=== PATIENT | female | born 1965 | race Caucasian/White ===

== ENCOUNTER 2022-03-26 21:26 | Emergency (ER) | payer OTHER ==
--- OUTSIDE RECORDS SUMMARY | 2022-03-26 21:37 | XMS REPORT | Continuity of Care Document ---
:1965 Author Organization [facility] t Address [address] [place] [address] Dr. Sosa [address] [place] [id number] Care Team Providers Name Role Phone Phani Attending Clinician Unavailable DR SAM Attending Clinician Unavailable YVETTE_Denice Attending Clinician Unavailable Yvette Attending Clinician [phone] DR SAM Admitting Clinician Unavailable BRIAN Admitting Clinician Unavailable Payers Payer Name Policy Type Policy Number Effective Date Expiration Date S ource [facility] [id number] [employer] [id number] (PPO) Problems This patient has no known problems. Allergies, Adverse Reactions, Alerts This patient has no known allergies or adverse reactions. Medications This patient has no known medications. Procedures This patient has no known procedures. Encounters Start End Encounter Admission Attending Care Care Encounter Source Date/Time Date/Time Type Type Clinicians Facility Department ID 2021-11-[address] [facility] [id number] Common 12:59:33 [facility] [id number] [facility] 2021-11-29 [facility] [id number] Common 12:47:34 [facility] [id number] [facility] 2019-02-17 Inpatient C SAM [facility] [id number] [facility] 08:44:00 [facility] 2022-03-01 2022-03-01 Outpatient YVETTE_C [facility] [id number] Angel 11:57:00 11:57:00 0428 [facility] 2022-03-01 2022-03-01 Outpatient Yvette [facility] [id number] 00:00:00 00:00:00 Jim [id number] 2021-12-12 2021-12-12 Outpatient SISSON_C [facility] [id number] Dixie 03:07:00 03:07:00 0208 [facility] 2021-12-12 2021-12-12 Outpatient Yvette [facility] [id number] 00:00:00 00:00:00 Jim [id number] 2021-11-10 2021-11-10 Outpatient SISSON_C [facility] [id number] Dixie 11:22:00 11:22:00 0107 [facility] 2021-11-07 2021-11-07 Outpatient SISSON_C [facility] [id number] [place]ie 02:56:00 02:56:00 0104 [facility] 2021-11-07 2021-11-07 Outpatient Yvette [facility] [id number] 00:00:00 00:00:00 Jim [id number] 2021-10-10 2021-10-10 Outpatient SISSON_C [facility] [id number] [place]ie 04:24:00 04:24:00 1207 [facility] 2021-10-10 2021-10-10 Outpatient Yvette [facility] [id number] 00:00:00 00:00:00 Jim [id number] 2021-09-15 2021-09-15 Outpatient SISSON_C [facility] [id number] [place]ie 02:38:00 02:38:00 1112 [facility] 2021-09-15 2021-09-15 Outpatient Yvette [facility] [id number] 00:00:00 00:00:00 Jim [id number] 2021-09-05 2021-09-05 Outpatient SISSON_C [facility] [id number] [place]ie 04:15:00 04:15:00 1102 [facility] 2021-09-05 2021-09-05 Outpatient Yvette [facility] [id number] 00:00:00 00:00:00 Jim [id number] 2021-08-17 2021-08-17 Outpatient SISSON_C [facility] [id number] Dixie 02:48:00 02:48:00 1014 [facility] 2021-08-17 2021-08-17 Outpatient Yvette [facility] [id number] 00:00:00 00:00:00 Jim [id number] 2021-08-02 2021-08-02 Outpatient SISSON_C [facility] [id number] [place]ie 11:49:00 11:49:00 0929 [facility] 2021-08-02 2021-08-02 Outpatient Yvette [facility] [id number] 00:00:00 00:00:00 Jim [id number] 2021-07-26 2021-07-26 Outpatient SISSON_C [facility] [id number] [place]ie 01:05:00 01:05:00 0922 [facility] 2021-07-26 2021-07-26 Outpatient Yvette [facility] [id number] 00:00:00 00:00:00 Jim [id number] 2021-06-20 2021-06-20 Outpatient SISSON_C [facility] [id number] [place]ie 10:59:00 10:59:00 0817 [facility] Results This patient has no known results.
[2022-03-27 00:52] LABS: Absolute Lymphocytes (CBC) 1.1 K/uL (0.7-4.9); Hematocrit 43.6 % (36.0-45.0); Lymphocytes % 11.9 % (15.3-44.8); MPV 9.6 fL (7.6-11.3); RBC Red Blood Cell Count 5.02 M/uL (3.86-4.86)
[2022-03-27 01:06] LABS: Bilirubin Total 0.3 mg/dL (0.2-1.0)
[2022-03-27 01:08] LABS: Potassium 3.6 mmol/L (3.5-5.1)
[2022-03-27] MEDS ORDERED: ONDANSETRON 4 MG/2 ML VIAL ONE (03:30)
[2022-03-27] MEDS ORDERED: MORPHINE 4 MG/ML SYR ONE (03:30)
--- NOTE | 2022-03-27 04:13 | EDPHYS ---
Physician Documentation [facility] Name: Alessandra Leyva Age: 56 yrs Sex: Female : 1965 Arrival Date: 03/26/2022 Time: 21:31 Bed 20 Private MD: ED Physician Bigg Morgan HPI: 03/27 01:27 This 56 yrs old Female presents to ER via Ambulatory with complaints of Abdominal Pain. kdr 01:27 The patient presents with abdominal pain in the upper abdomen, Patient presents with kdr left flank pain which radiates around to her upper abdomen area. Onset: The symptoms/episode began/occurred yesterday, Pain has been intermittent since yesterday. He was seen at [facility] earlier today for the same problem and had a full work-up. No specific diagnosis was made at that time. She has the laboratory data with her. In review of that information there is no obvious pathology observed.. The symptoms radiate to right upper quadrant and left upper quadrant. Associated signs and symptoms: Pertinent positives: nausea, Pertinent negatives: chest pain, constipation, diarrhea, dysuria, fever, headache, hematuria, palpitations, shortness of breath, vaginal discharge. The symptoms are described as burning, waxing/waning. Modifying factors: The symptoms are alleviated by nothing, the symptoms are aggravated by nothing. Severity of pain: At its worst the pain was moderate severe just prior to arrival, yesterday, in the emergency department the pain has improved moderately. The patient has not experienced similar symptoms in the past. The patient has been recently seen by a physician: earlier today, with similar presenting complaints, and apparently given a diagnosis of For the same problem without a diagnosis being made. Historical: - Allergies: 03/26 23:38 sudoephedrine; sm5 - Immunization history:: Adult Immunizations unknown. - Social history:: Smoking status: unknown. ROS: 03/27 01:27 Constitutional: Negative for fever, chills, and weight loss, Eyes: Negative for injury, kdr pain, redness, and discharge, ENT: Negative for injury, pain, and discharge, Neck: Negative for injury, pain, and swelling, Cardiovascular: Negative for chest pain, palpitations, and edema, Respiratory: Negative for shortness of breath, cough, wheezing, and pleuritic chest pain, Back: Negative for injury and pain, : Negative for injury, bleeding, discharge, and swelling, MS/Extremity: Negative for injury and deformity, Skin: Negative for injury, rash, and discoloration, Neuro: Negative for headache, weakness, numbness, tingling, and seizure activity. Psych: Negative for depression, anxiety, suicide ideation, homicidal ideation, and hallucinations, Allergy/Immunology: Negative for hives, rash, and allergies, Endocrine: Negative for neck swelling, polydipsia, polyuria, polyphagia, and marked weight changes, Hematologic/Lymphatic: Negative for swollen nodes, abnormal bleeding, and unusual bruising. Abdomen/GI: Positive for abdominal pain, nausea, Negative for abdominal cramps, abdominal distension, black/tarry stool, rectal pain, rectal bleeding, bowel incontinence. Exam: 01:35 Constitutional: This is a well developed, well nourished patient who is awake, alert, kdr and in no acute distress. Head/Face: Normocephalic, atraumatic. Eyes: Pupils equal round and reactive to light, extra-ocular motions intact. Lids and lashes normal. Conjunctiva and sclera are non-icteric and not injected. Cornea within normal limits. Periorbital areas with no swelling, redness, or edema. Neck: Trachea midline, no thyromegaly or masses palpated, and no cervical lymphadenopathy. Supple, full range of motion without nuchal rigidity, or vertebral point tenderness. No Meningismus. Chest/axilla: Normal chest wall appearance and motion. Nontender with no deformity. No lesions are appreciated. Cardiovascular: Regular rate and rhythm with a normal S1 and S2. No gallops, murmurs, or rubs. Normal PMI, no JVD. No pulse deficits. Respiratory: Lungs have equal breath sounds bilaterally, clear to auscultation and percussion. No rales, rhonchi or wheezes noted. No increased work of breathing, no retractions or nasal flaring. Back: No spinal tenderness. No costovertebral tenderness. Full range of motion. Skin: Warm, dry with normal turgor. Normal color with no rashes, no lesions, and no evidence of cellulitis. MS/ Extremity: Pulses equal, no cyanosis. Neurovascular intact. Full, normal range of motion. Neuro: Awake and alert, GCS 15, oriented to person, place, time, and situation. Cranial nerves II-XII grossly intact. Motor strength 5/5 in all extremities. Sensory grossly intact. Cerebellar exam normal. Normal gait. Psych: Awake, alert, with orientation to person, place and time. Behavior, mood, and affect are within normal limits. 01:35 Abdomen/GI: Inspection: abdomen appears normal, obese Bowel sounds: normal, active, Palpation: soft, mild abdominal tenderness, in the posterior aspect of left lateral abdomen, anterior aspect of left lateral abdomen and left upper quadrant, rebound tenderness, is not appreciated, voluntary guarding, is not appreciated, involuntary guarding, is not appreciated. Vital Signs: 03/26 22:28 BP 121 / 82; Pulse 61; Resp 18; Temp 97.8(O); Pulse Ox 97% on R/A; [facility] 03/27 03:21 BP 149 / 88; Pulse 50; Resp 18; Pulse Ox 98% on R/A; sm5 05:55 BP 133 / 78; Pulse 45; Resp 17; Pulse Ox 95% on R/A; sm5 MDM: 01:35 Data reviewed: vital signs, nurses notes, lab test result(s), radiologic studies. kdr Counseling: I had a detailed discussion with the patient and/or guardian regarding: the historical points, exam findings, and any diagnostic results supporting the discharge/admit diagnosis, lab results, radiology results, the need for outpatient follow up. 04:12 Patient medically screened. [facility] 03/26 22:02 Order name: CBC with Diff; Complete Time: 01:36 [facility] 03/26 22:02 Order name: CMP; Complete Time: 01:36 [facility] 03/26 22:02 Order name: Lipase; Complete Time: 01:36 [facility] 03/26 23:14 Order name: US Abdomen Limited [facility] 03/27 01:31 Order name: Troponin High Sensitivity; Complete Time: 03:21 [facility] 03/27 02:59 Order name: COVID-19 SARS RT PCR (Document "Date of Onset" if Symptomatic) [facility] 03/26 22:02 Order name: IV Saline Lock; Complete Time: 00:40 [facility] 03/26 22:02 Order name: Labs collected and sent; Complete Time: 00:40 [facility] 03/26 23:14 Order name: CT Abd/Pelvis - Without Contrast kdr Administered Medications: 03/26 23:32 Not Given (Patient Refused): NS 0.9% 1000 ml IV at 1 bolus Per protocol; 1000 mL bolus [facility] 03/27 03:29 Drug: morphine 4 mg Route: IVP; Site: right antecubital; 5 06:25 Follow up: Response: Pain is decreased [facility] 03:29 Drug: Zofran (Ondansetron) 4 mg Route: IVP; Site: right antecubital; 5 06:25 Follow up: Response: No adverse reaction 5 Disposition Summary: 03/27/22 04:12 Transfer Ordered Transfer Location: [facility] kdr Reason: Higher level of care kdr Condition: Fair kdr Problem: new kdr Symptoms: have improved kdr Accepting Physician: Suyapa(03/27/22 06:26) 5 Diagnosis - Other acute pancreatitis without necrosis or infection kdr Forms: - Medication Reconciliation Form kdr - SBAR form kdr Signatures: Dispatcher [employer] EDBigg Sharma MD MD kdr Wood, Tiffany [facility] Diamond Henry, RN RN 5 Corrections: (The following items were deleted from the chart) 03/26 22:03 22:01 Allergies: No Known Allergies; [place] [id number] 22:17 22:01 Allergies: tequin; [place] [address] 22:17 22:02 Allergies: Morphine; [place] [address] 22:17 22:02 Allergies: Oxycodone HCl; [place] [address] 22:17 22:02 Allergies: Dilaudid; [place] [address] 22:17 22:02 Social history: Smoking status: Patient denies any tobacco usage or history of. [place] [address] 22: 22:02 Immunization history: Flu vaccine is up to date. [place] [id number] 03/27 06:26 04:12 Suyapa kdr 5
--- NOTE | 2022-03-27 04:13 | ER ---
Nurse's Notes [facility] Name: Alessandra Leyva Age: 56 yrs Sex: Female : 1965 Arrival Date: 03/26/2022 Time: 21:31 Bed 20 Private MD: Diagnosis: Other acute pancreatitis without necrosis or infection Presentation: 03/26 21:55 Acuity: TYLER 3 tw5 22:15 Chief complaint: Patient states: seen at [facility] ER today for abd pain, d/c home with sm5 prescriptions. pt took prescriptions meds and still stating she is having abd pain. Coronavirus screen: At this time, the client does not indicate any symptoms associated with coronavirus-19. Ebola Screen: No symptoms or risks identified at this time. Initial Sepsis Screen: Does the patient meet any 2 criteria? No. Patient's initial sepsis screen is negative. Does the patient have a suspected source of infection? No. Patient's initial sepsis screen is negative. Risk Assessment: Do you want to hurt yourself or someone else? Patient reports no desire to harm self or others. Onset of symptoms was March 26, 2022. 22:15 Method Of Arrival: Ambulatory sm5 Historical: - Allergies: 23:38 sudoephedrine; sm5 - Immunization history:: Adult Immunizations unknown. - Social history:: Smoking status: unknown. Screenin:05 Abuse screen: Denies threats or abuse. Denies injuries from another. Nutritional sm5 screening: No deficits noted. Tuberculosis screening: No symptoms or risk factors identified. Fall Risk None identified. Assessment: 22:45 Reassessment: pt refusing an IV, blood work, and NS fluids, stating she just had all of sm5 this done earlier today at [facility]. Provider made aware. 23:05 General: Appears in no apparent distress. Behavior is cooperative. Pain: Complains of sm5 pain in abdomen. Neuro: No deficits noted. Lerner Agitation-Sedation Scale (RASS): 0 - Alert and Calm Level of Consciousness is awake, alert, obeys commands, Oriented to person, place, time, situation. Cardiovascular: No deficits noted. Capillary refill < 3 seconds Patient's skin is warm and dry. Respiratory: No deficits noted. Airway is patent Trachea midline Respiratory effort is even, unlabored. GI: Bowel sounds present X 4 quads. Abd is soft Reports lower abdominal pain, upper abdominal pain. 03/27 00:15 Reassessment: No changes from previously documented assessment. Patient and/or family sm5 updated on plan of care and expected duration. Pain level reassessed. 01:12 Reassessment: No changes from previously documented assessment. Patient and/or family sm5 updated on plan of care and expected duration. Pain level reassessed. Patient is alert, oriented x 3, equal unlabored respirations, skin warm/dry/pink. 02:30 Reassessment: No changes from previously documented assessment. Patient and/or family sm5 updated on plan of care and expected duration. Pain level reassessed. 03:30 Reassessment: Patient and/or family updated on plan of care and expected duration. Pain sm5 level reassessed. Patient is alert, oriented x 3, equal unlabored respirations, skin warm/dry/pink. 04:30 Reassessment: pt asleep. sm5 05:55 Reassessment: No changes from previously documented assessment. sm5 Vital Signs: 03/26 22:28 BP 121 / 82; Pulse 61; Resp 18; Temp 97.8(O); Pulse Ox 97% on R/A; mw2 03/27 03:21 BP 149 / 88; Pulse 50; Resp 18; Pulse Ox 98% on R/A; sm5 05:55 BP 133 / 78; Pulse 45; Resp 17; Pulse Ox 95% on R/A; sm5 ED Course: 03/26 21:31 Patient arrived in ED. bp1 22:01 Triage completed. tw5 22:01 Bigg Morgan MD is Attending Physician. kdr 22:11 Ryne Mcelroy, ADRIEL is Primary Nurse. as6 23:31 Arm band placed on right wrist. sm5 23:31 Patient has correct armband on for positive identification. Bed in low position. Call 5 light in reach. Side rails up X2. 23:53 US Abdomen Limited In Process Unspecified. EDMS 03/27 00:25 Initial lab(s) drawn, by me, sent to lab. Inserted saline lock: 20 gauge in right bb antecubital area, using aseptic technique. Blood collected. 00:40 CBC with Diff Sent. sm5 00:40 CMP Sent. sm5 00:40 Lipase Sent. sm5 00:43 Diamond Henry, ADRIEL is Primary Nurse. sm5 01:31 CT Abd/Pelvis - Without Contrast In Process Unspecified. EDMS 02:37 intiated a transfer with Leni from [facility]. [place] denied due to capacity. mw2 02:57 initiated a transfer with Grace from [facility]. mw2 03:[address] Morgan with Dr. Dale from [facility]. mw2 04:03 awaiting covid result to get bed assignment at [facility]. mw2 04:28 called Jyotsna in Lab to get status on Covid result. She stated the swab messed up so mw2 they have to re run it another 45 minutes. 05:30 Contacted [facility] spoke with Nevaeh to give her patient's covid result. mw2 05:34 administrative approval given by Grace Mustafa/ patient has been accepted to [address] bed 415/ Dr. Dale accepted the patient in transfer/ report to be called to [phone]. 05:58 [facility] ETA 15- 20 minutes. mw2 06:25 No provider procedures requiring assistance completed. Patient transferred, IV remains sm5 in place. Administered Medications: 03/26 23:32 Not Given (Patient Refused): NS 0.9% 1000 ml IV at 1 bolus Per protocol; 1000 mL bolus sm5 03/27 03:29 Drug: morphine 4 mg Route: IVP; Site: right antecubital; 5 06:25 Follow up: Response: Pain is decreased sm5 03:29 Drug: Zofran (Ondansetron) 4 mg Route: IVP; Site: right antecubital; sm5 06:25 Follow up: Response: No adverse reaction sm5 Medication: 03/26 23:32 VIS not applicable for this client. sm5 Outcome: 03/27 04:12 ER care complete, transfer ordered by . kdr 06:25 Transferred by ground EMS to other acute care facility: [facility]. Transfer sm5 form completed. X-rays sent w/ patient. 06:25 Condition: stable 06:25 Instructed on the need for transfer. 06:26 Patient left the ED. sm5 Signatures: Dispatcher [employer] EDMS Bigg Morgan MD MD kdr Ballard, Brenda, RN RN bb Susanna Sumner mw2 Brittany Castellanos Tiffany tw5 Rnye Mcelroy, RN RN as6 Diamond Henry, RN RN sm5 Corrections: (The following items were deleted from the chart) 03/26 22:03 22:01 Allergies: No Known Allergies; 5 22:16 21:55 Chief complaint: Patient states: "Saturday I had an ERCP and stent exchange and tw5 they kept me through Saturday afternoon for pain control. I was doing okay Saturday- Saturday. I was on a liquid diet. I had some soup and the pain today is just unbearable. My pancreatic doctor told me to come here." : Coronavirus screen: Vaccine status: Patient reports receiving the 2nd dose of the covid vaccine. Moderna :55 Ebola Screen: Patient negative for fever greater than or equal to 101.5 degrees tw5 Fahrenheit, and additional compatible Ebola Virus Disease symptoms Patient denies exposure to infectious person. Patient denies travel to an Ebola-affected area in the 21 days before illness onset. :55 Initial Sepsis Screen: Does the patient meet any 2 criteria? No. Patient's 5 initial sepsis screen is negative. Does the patient have a suspected source of infection? No. Patient's initial sepsis screen is negative. 21:55 Risk Assessment: Do you want to hurt yourself or someone else? Patient reports no desire to harm self or others. 21:55 Onset of symptoms was March 25, 2022 tw 21:55 Chief complaint: Patient states: "Saturday I had an ERCP and stent exchange and tw5 they kept me through Saturday afternoon for pain control. I was doing okay Saturday- Saturday. I was on a liquid diet. I had some soup and the pain today is just unbearable. My pancreatic doctor told me to come here." :55 Method Of Arrival: Ambulatory [facility] 21:55 BP 127 / 101; Pulse 88bpm; Resp 88bpm; Pulse Ox 94% RA; Temp 98.6F; 86.18 kg; tw5 Height 5 ft. 0 in.; BMI: 37.1; Pain 08/13; tw5 22: 22:01 Allergies: tequin; tw5 tw5 : 22:02 Allergies: Morphine; tw5 tw5 : 22:02 Allergies: Oxycodone HCl; tw5 tw5 : 22:02 Allergies: Dilaudid; tw5 tw5 22: 22:02 Social history: Smoking status: Patient denies any tobacco usage or history of. tw5 tw5 : 22:02 Immunization history: Flu vaccine is up to date. tw5 5 : 22:02 General: Appears in no apparent distress. Behavior is calm, cooperative, tw5 appropriate for age, tw5 : 22:02 Pain: Complains of pain in abdomen Pain currently is 10 out of 10 on a pain tw5 scale. tw5 : 22:02 GI: Reports nausea, tw5 tw5 :18 22:02 Arm band placed on left wrist. tw5 tw5
[2022-03-27 06:42] VITALS: TEMP 97.8
[2022-03-27 06:45] VITALS: BP 133/78; O2SAT 95
--- NOTE | 2022-03-27 13:12 | RAD REPORT ---
EXAM DESCRIPTION: CT - Abdomen Pelvis Wo Contrast - 03/27/2022 5:47 am CLINICAL HISTORY: 56 years, Female, Abdominal pain, acute, nonlocalized COMPARISON: None. TECHNIQUE: Multiple transaxial tomograms of the abdomen and pelvis were performed from the lung base s to the symphysis pubis 5 mm slice thickness at 5 mm interval reconstruction, without administration of IV and oral contrast. Multiplanar reformats in the sagittal and coronal plane were generated and reviewed. This exam was performed according to our departmental dose-optimization protocol, which includes auto mated exposure control, adjustment of the mA and/or kV according to patient size and/or use of iterat berta reconstruction technique. FINDINGS: The lack of IV and oral contrast limits evaluation of solid organs, subtle lesions cannot be excluded. The lung bases demonstrate to be clear. Findings just most likely bilateral breast implants. Grossly the unopacified liver, gallbladder, pancreas, spleen and adrenal glands demonstrate to be wit hin normal limits, no significant focal lesions were identified. The kidneys demonstrate grossly unremarkable. There is no evidence for hydronephrosis. There is nor mal excretion of contrast within the collecting calyceal system perhaps related to previous iodine st udy. There is a upper pole left renal cyst measuring 3.9 x 2.9 cm on image 28. Grossly the unopacified stomach demonstrate status post gastric bypass sleeve. Otherwise the stomach, small bowel and large bowel demonstrate to be within normal limits. There is no evidence for bowel d ilatation and/or free air. The appendix is unremarkable. The urinary bladder demonstrate normal accumulation of contrast media. The uterus is absent. There ar e no adnexal masses. The aorta demonstrate to be normal. There is no retroperitoneal lymphadenopath y. There is no evidence for ascites. The rest of the soft tissue demonstrate to be grossly unremark able. IMPRESSION: No evidence for hydronephrosis and/or hydroureter. Normal accumulation of contrast within the collecting calyceal system and urinary bladder related to most likely previous iodine study. Center report Left renal cyst. Status post gastric bypass sleeve and hysterectomy. Electronically signed by: Shan Kemp MD 03/27/2022 1:51 AM CDT Due to temporary technical issues with the PACS/Fluency reporting system, reports are being signed by the in house radiologists without review as a courtesy to insure prompt reporting. The interpreting radiologist is fully responsible for the content of the report.
--- NOTE | 2022-03-27 13:20 | RAD REPORT ---
EXAM DESCRIPTION: US - Abdomen Exam Limited - 03/27/2022 1:43 am CLINICAL HISTORY: 56 years, Female, Upper abdomen pain COMPARISON: None. TECHNIQUE: Utilizing a curved array transducer, real-time ultrasound evaluation of the abdominal vis cera was performed. Color Doppler imaging was used to assess vascular flow. FINDINGS: The gallbladder demonstrate to be within normal limits. No gallbladder stones were seen. No pericholecystic fluid and or wall thickening was identified. The common bile duct measures 4. 4 mm. No intra or extrahepatic biliary duct dilatation was identified. There is no evidence for significant free fluid. IMPRESSION: No sonographic evidence of cholecystitis. Electronically signed by: Shan Kemp MD 03/27/2022 12:23 AM CDT Due to temporary technical issues with the PACS/Fluency reporting system, reports are being signed by the in house radiologists without review as a courtesy to insure prompt reporting. The interpreting radiologist is fully responsible for the content of the report.
== END 2022-03-27 06:26 | disposition short-term general hospital (02) ==
LOC: ER 21:26
DX: K85.80 Other acute pancreatitis without necrosis or infection (principal); Z20.822 Contact with and (suspected) exposure to COVID-19; Z88.8 Allergy status to other drugs, medicaments and biological substances
CPT/HCPCS: 85025; 36415; 84484; 83690; 80053; 74176; 76705; U0003; J2405; 96374; 96375; 99285